=== PATIENT | female | born 1990 | race Caucasian/White ===

== ENCOUNTER 2017-04-13 01:50 | Emergency (ER) | payer BC ==
[2017-04-13 02:10] VITALS: BP 142/74
--- NOTE | 2017-04-13 02:14 | EDM.PDOC ---
ED HPI GENERAL MEDICAL PROBLEM - General Chief Complaint: Respiratory Problem Stated Complaint: cough sob Time Seen by Provider: 04/13/17 02:14 Source of Information: Reports: Patient History Limitations: Reports: No Limitations - History of Present Illness INITIAL COMMENTS - FREE TEXT/NARRATIVE: 26-year-old female reports that she has felt unwell for the better part of a week. Both her father and a brother have been influenza positive. She was tested last Thursday which would've been 07 April and she proved to be negative at that time. She has had all the signs symptoms of influenza however with the body aches headache and paroxysmal cough. Appetite has been very poor. She feels however her chest is becoming much more tender from coughing and now starting to become more productive in terms of sputum production. Intermittent fever and chills. Unable to sleep tonight as soon as she lies down she starts coughing severely. Pain quite bad along her lower ribs lateral rib cage bilaterally from coughing Onset: Gradual Onset Date: 04/05/17 Duration: Day(s): Location: Reports: Chest (Productive cough) Quality: Reports: Ache, Sharp, Stabbing, Other Severity: Moderate (Hurts to cough particularly lower lateral ribs bilaterally.) Improves with: Reports: None Worsens with: Reports: Other Context: Reports: Sick Contact (Father and brother are positive for influenza.) . Denies: Activity (Movement and exposure to cool night air.), Exercise, Lifting Associated Symptoms: Reports: Chest Pain, Cough, cough w sputum (From coughing so much), Fever/Chills, Headaches, Loss of Appetite, Malaise, Shortness of Breath. 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.) chest (respiratory) Pain Score (Numeric/FACES): 9 - Related Data Allergies Allergy/AdvReac Type Severity Reaction Status Date / Time No Known Allergies Allergy Verified 04/13/17 02:10 Home Meds: Home Meds Citalopram [Celexa] 40 mg PO DAILY 09/20/14 [History] Levothyroxine [Synthroid] 200 mcg PO DAILY 09/20/14 [History] Omeprazole [Prilosec] 40 mg PO DAILY 09/20/14 [History] Norethindrone AC-Eth Estradiol [Scooby 1.5 mg-30 Mcg Tablet] 1 each PO DAILY [History] Ondansetron [Zofran ODT] 4 mg PO Q6H PRN #20 tab.dis 03/28/16 [Rx] buPROPion [buPROPion XL] 150 mg PO DAILY 03/28/16 [History] Albuterol [Ventolin HFA] 1 - 2 puff INH Q4H PRN 04/13/17 [History] Chlorpheniramine/HYDROcodone [Tussionex Pennkinetic] 5 ml PO Q12H PRN #60 ml [Rx] Doxycycline [Vibramycin] 100 mg PO DAILY #20 tab 04/13/17 [Rx] LORazepam 0.5 - 1 mg PO Q8H PRN 04/13/17 [History] Past Medical History Gastrointestinal History: Reports: Chronic Diarrhea, Irritable Bowel Syndrome Psychiatric History: Reports: Anxiety, Depression Endocrine/Metabolic History: Reports: Hypothyroidism - Past Surgical History HEENT Surgical History: Reports: Eye Surgery Social & Family History - Family History Family Medical History: Noncontributory - Tobacco Use Smoking Status *Q: Never Smoker - Caffeine Use Caffeine Use: Reports: None - Recreational Drug Use Recreational Drug Use: No - Living Situation & Occupation Living situation: Reports: Single Occupation: Employed ED ROS GENERAL - Review of Systems Review Of Systems: See Below Constitutional: Reports: Fever, Malaise, Weakness, Fatigue, Decreased Appetite HEENT: Reports: Ear Pain (Right side), Eye Pain (Irritation of right medial eye. ), Glasses Respiratory: Reports: Shortness of Breath, Cough, Sputum (Productive cough). Denies: Hemoptysis ( discolored sputum) Cardiovascular: Reports: Chest Pain (From coughing so much left lateral lower ribs are very tender to to cough.), Dyspnea on Exertion. Denies: Blood Pressure Problem, Claudication, Edema, Lightheadedness, Orthopnea, Palpitations Endocrine: Reports: Fatigue GI/Abdominal: Reports: Decreased Appetite : Reports: No Symptoms Musculoskeletal: Reports: No Symptoms Skin: Reports: No Symptoms Neurological: Reports: No Symptoms Psychiatric: Reports: No Symptoms ED EXAM, GENERAL - Physical Exam Exam: See Below Exam Limited By: No Limitations General Appearance: Alert, WD/WN, No Apparent Distress, Other (Very productive sounding cough.) Eye Exam: Bilateral Eye: Conjunctival Injection (Right medial conjunctiva is quite erythematous. Patient has had previous tubes placed in her tear duct apparatus. She states she does become inflamed periodically.) Ear Exam: Right Ear: TM Dull, TM Bulging (Has evidence of a right serous otitis media. Left TM is normal.) Throat/Mouth: Normal Inspection, Normal Lips, Normal Teeth, Normal Oropharynx, Other Head: Atraumatic, Normocephalic (Tonsils are normal) Neck: Normal Inspection, Supple, Non-Tender, Full Range of Motion, Lymphadenopathy (L) (Moderately enlarged and tender to touch.), Lymphadenopathy (R) (Mildly enlarged.) Respiratory/Chest: Respiratory Distress (Mild tachypnea at rest 22-24/m), Rhonchi, Wheezing (Scattered rhonchi upper lobes and left posterior upper lobe. Scattered wheezes and similar lobes.) Cardiovascular: Normal Peripheral Pulses, Regular Rate, Rhythm, No Edema, No Murmur, Tachycardia (Resting heart rate of 10 2/m.) GI/Abdominal: Normal Bowel Sounds, Soft, Non-Tender, No Organomegaly Back Exam: Normal Inspection, Full Range of Motion. No: CVA Tenderness (L), CVA Tenderness (R) Extremities: Normal Inspection, Normal Range of Motion, Non-Tender, No Pedal Edema Neurological: Alert, Oriented, CN II-XII Intact, Normal Cognition, Normal Gait Psychiatric: Normal Affect, Normal Mood Skin Exam: Warm, Dry, Intact, Normal Color, No Rash Course - Vital Signs Last Recorded V/S: Last Vital Signs Temp 36.6 C 04/13/17 02:07 Pulse 100 04/13/17 02:07 Resp 22 H 04/13/17 02:07 BP 142/74 H 04/13/17 02:07 Pulse Ox 98 04/13/17 02:07 - Orders/Labs/Meds Orders: Active Orders 24 hr Category Date Time Status Chest 2V [CR] Stat Exams 04/13/17 02:24 Ordered INFLUENZA A+B AG SCREEN [RM] Stat Lab 04/13/17 02:24 Uncollected - Radiology Interpretation Free Text/Narrative:: 26-year-old female attends the ED with a weeklong history of paroxysmal cough occasionally 0 point of emesis. Both her father and brother were proved positive for influenza. She was screened last April 07 and was proved to be negative at that time. She did have all the signs and symptoms of influenza with headache bodyache and paroxysmal cough. She came to the ED tonight because when she lies down she can't stop coughing. Unable to sleep. Also started bringing up more sputum greenish in color. Still having intermittent fever and chills. Examination shows a right serous otitis media. Chest is mildly congested with scattered expiratory wheezes and rhonchi. Plan influenza skin screen repeated. Two-view chest to be done. - Re-Assessments/Exams Free Text/Narrative Re-Assessment/Exam: 04/13/17 02:55 chest x-ray reveals an infiltrate right lower lobe adjacent to the heart border. This is compatible with ADD developing pneumonia. Will therefore be Phenergan with Codeine cough syrup in the ED 15 mils now the first 2 tablets of doxycycline 100 mg will be given as well. Treatment as an outpatient be Doxil cycle 100 mg twice a day for the next 10 days Tussionex cough syrup 5 mils every 12 hours. For cough relief 60 mils written for. Follow- up with personal physician if not markedly improved in 72 hours time Departure - Departure Time of Disposition: 02:55 Disposition: Home, Self-Care 01 Condition: Fair Clinical Impression: Pneumonia Qualifiers: Pneumonia type: due to unspecified organism Laterality: right Lung location: lower lobe of lung Qualified Code(s): J18.1 - Lobar pneumonia, unspecified organism - Discharge Information Prescriptions: Chlorpheniramine/HYDROcodone [Tussionex Pennkinetic] 5 ml PO Q12H PRN #60 ml PRN Reason: COUGH RELIEF Doxycycline [Vibramycin] 100 mg PO DAILY #20 tab Referrals: Shannan Fox, SURVEILLANCE MONITOR [Primary Care Provider] - Forms: ED Department Discharge Additional Instructions: Evaluation the emergency room tonight in regards to paroxysmal productive cough getting worse over the last week. Ribs are hurting from coughing so much. Intermittent fever and chills. Exam reveals fluid behind her right ear with no acute infection yet. X-ray two-view reveals pneumonia starting in the bottom of your right lung adjacent to your heart. Treatment is therefore to be antibiotics doxycycline 100 mg twice daily for the next 10 days to clear up infection. Cough syrup will be Tussionex cough syrup 5 mils every 12 hours as needed for cough relief. Continue Motrin 600 mg every 6 hours needed for fever or body ache or headache relief. Expect gradual improvement over the next 72 hours In the ED were given Phenergan with codeine cough syrup as we do not have Tussionex in the department. First 2 tablets of doxycycline were also provided by mouth. - My Orders Last 24 Hours: My Active Orders 04/13/17 02:24 Chest 2V [CR] Stat INFLUENZA A+B AG SCREEN [RM] Stat - Assessment/Plan Last 24 Hours: My Active Orders 04/13/17 02:24 Chest 2V [CR] Stat INFLUENZA A+B AG SCREEN [RM] Stat
[2017-04-13] MEDS ORDERED: Codeine/Promethazine 10-6.25 MG/5 ML Syrup 5 ML UD Cup PO ONE (02:51)
[2017-04-13] MEDS ORDERED: Doxycycline 100 MG Cap PO ONE (02:51)
--- NOTE | 2017-04-13 07:54 | CR ---
Chest: Two views of the chest were obtained. Comparison: No prior chest x-ray is available. Heart size and mediastinum are within normal limits. Lungs are clear. Bony structures are unremarkable for the patient's age. Surgical clips are noted from prior cholecystectomy. Impression: 1. Nothing acute is identified on two-view chest x-ray. Diagnostic code #2
== END 2017-04-13 03:10 | disposition home or self-care (01) ==
LOC: JD.ED 01:50
DX: J18.9 Pneumonia, unspecified organism (principal); E03.9 Hypothyroidism, unspecified; Z79.899 Other long term (current) drug therapy
CPT/HCPCS: 71046; 87804; 99283; A9270; 99284

== ENCOUNTER 2019-05-02 15:38 | Emergency (ER) | payer BC ==
--- NOTE | 2019-05-02 16:36 | EDM.PDOC ---
<Jeannette Lowry - Last Filed: 05/02/19 16:25> ED HPI GENERAL MEDICAL PROBLEM - General Chief Complaint: ENT Problem Stated Complaint: COLD/CHEST PAIN Time Seen by Provider: 05/02/19 16:10 Source of Information: Reports: Patient History Limitations: Reports: No Limitations - History of Present Illness INITIAL COMMENTS - FREE TEXT/NARRATIVE: Patient is a pleasant 28-year-old female who presents to the ED for ongoing congestion, sore throat, and bilateral ear pain that has been present for the past month and chest pain that started a three days ago. She reports she was seen at the clinic about a month ago for congestion, sore throat, and ear pain, at which time she was told it was viral in nature and prescribed an albuterol inhaler and told to take OTC cold medicine. She states her symptoms never resolved and now the ear pain has increased. She states the clinic did tell her she had a bilateral ear effusion, however she has not tried any of the OTC treatments they suggested. She feels the sore throat is from the nasal drainage. Three days ago she developed intermittent chest pain that she reports last about 10 minutes in duration and occurs about twice every hour. She describes the pain as sharp and rates it between a 5-8/10 depending on the time. She states she has tried Tylenol for the pain with no relief. She denies previous episodes of chest pain. She does not think the chest pain is brought on by coughing or movement. The pain comes on suddenly and resolves on its own after about 10 minutes. She denies shortness of breath, fever, chills, nausea, vomiting, and diarrhea. Upper Chest Pain Score (Numeric/FACES): 6 - Related Data Allergies Allergy/AdvReac Type Severity Reaction Status Date / Time No Known Allergies Allergy Verified 05/02/19 15:45 Home Meds: Home Meds Levothyroxine [Synthroid] 150 mcg PO [id number] 09/20/14 [History] Omeprazole [Prilosec] 40 mg PO DAILY 09/20/14 [History] Norethindrone AC-Eth Estradiol [Scooby 1.5 mg-30 Mcg Tablet] 1 each PO DAILY [History] Ondansetron [Zofran ODT] 4 mg PO Q6H PRN #20 tab.dis 03/28/16 [Rx] buPROPion [buPROPion XL] 300 mg PO DAILY 03/28/16 [History] Albuterol [Ventolin HFA] 1 - 2 puff INH Q4H PRN 04/13/17 [History] LORazepam 0.5 - 1 mg PO Q8H PRN 04/13/17 [History] Codeine/Promethazine [Phenergan with Codeine] 5 - 10 ml PO Q6HR PRN #300 ml [Rx] Levothyroxine Sodium [Synthroid] 175 mcg PO VARELA 05/02/19 [History] predniSONE [Prednisone] 40 mg PO DAILY #10 tablet 05/02/19 [Rx] Past Medical History HEENT History: Reports: Impaired Vision Gastrointestinal History: Reports: Chronic Diarrhea, Irritable Bowel Syndrome Psychiatric History: Reports: Anxiety, Depression Endocrine/Metabolic History: Reports: Hypothyroidism Oncologic (Cancer) History: Reports: Thyroid - Past Surgical History HEENT Surgical History: Reports: Eye Surgery Social & Family History - Family History Family Medical History: Noncontributory - Tobacco Use Smoking Status *Q: Never Smoker - Caffeine Use Caffeine Use: Reports: Soda - Recreational Drug Use Recreational Drug Use: No - Living Situation & Occupation Living situation: Reports: Single Occupation: Employed ED ROS ENT - Review of Systems Review Of Systems: See Below Constitutional: Reports: Fatigue. Denies: Fever, Chills HEENT: Reports: Ear Pain (bilateral), Rhinitis, Sinus Problem (congestion), Throat Pain. Denies: Eye Pain, Vertigo, Vision Change Respiratory: Reports: Cough (occasional dry). Denies: Shortness of Breath, Wheezing Cardiovascular: Reports: No Symptoms. Denies: Chest Pain, Edema, Lightheadedness, Syncope GI/Abdominal: Reports: No Symptoms. Denies: Abdominal Pain, Diarrhea, Nausea, Vomiting Musculoskeletal: Reports: No Symptoms. Denies: Neck Pain, Back Pain, Muscle Pain Skin: Reports: No Symptoms. Denies: Rash, Erythema Neurological: Reports: No Symptoms. Denies: Dizziness, Headache, Numbness, Syncope, Tingling, Weakness Psychiatric: Reports: No Symptoms ED EXAM, ENT - Physical Exam Exam: See Below Exam Limited By: No Limitations General Appearance: Alert, WD/WN, No Apparent Distress Eye Exam: Bilateral Eye: Normal Inspection, PERRL Ears: Normal External Exam, Normal Canal, Hearing Grossly Normal, TM Fluid ( bilateral ear effusions). No: TM Bulging, TM Dullness, TM Erythema Nose: Normal Inspection, Normal Mucousa, No Blood, Clear Rhinorrhea Mouth/Throat: Normal Inspection, Normal Gums, Normal Lips, Normal Teeth, Other ( postnasal drainage noted in posterior oropharynx. Oral mucosa dry.) Head: Atraumatic, Normocephalic Neck: Normal Inspection, Supple, Non-Tender, Full Range of Motion Respiratory/Chest: No Respiratory Distress, Lungs Clear, No Accessory Muscle Use , Chest Non-Tender, Decreased Breath Sounds (all lung ferguson sound tight). No: Rales, Rhonchi, Wheezing Cardiovascular: Normal Peripheral Pulses, Regular Rate, Rhythm, No Edema, No Gallop, No Murmur GI/Abdominal: Normal Bowel Sounds, Soft, Non-Tender, No Organomegaly, No Distention, No Mass. No: No Abnormal Bruit Back: Normal Inspection, Full Range of Motion Extremities: Normal Inspection, Normal Range of Motion, Non-Tender, No Pedal Edema, Normal Capillary Refill Neurological: Alert, Oriented, Normal Cognition, Normal Gait, No Motor/Sensory Deficits Psychiatric: Normal Affect, Normal Mood Skin: Warm, Dry, Intact, Normal Color, No Rash Lymphatic: No Adenopathy Course - Vital Signs Last Recorded V/S: Last Vital Signs Temp 98.4 F 05/02/19 15:49 Pulse 99 05/02/19 15:49 Resp 14 05/02/19 15:49 BP 138/90 05/02/19 15:49 Pulse Ox 100 05/02/19 16:38 - Orders/Labs/Meds Orders: Active Orders 24 hr Category Date Time Status RT Aerosol Therapy [RC] ASDIRECTED Care 05/02/19 16:38 Active CXR [Chest 2V] [CR] Stat Exams 05/02/19 16:38 Taken Meds: Medications Discontinued Medications Generic Name Dose Route Start Last Admin Trade Name Freq PRN Reason Stop Dose Admin Albuterol/Ipratropium 3 ml 05/02/19 16:38 05/02/19 16:48 Duoneb 3.0-0.5 Mg/3 Ml NEB 05/02/19 16:39 3 ml ONETIME ONE Administration Departure - Departure Disposition: Home, Self-Care 01 Clinical Impression: Viral URI Reactive airway disease Qualifiers: Asthma severity: mild Asthma persistence: intermittent Asthma complication type : with acute exacerbation Qualified Code(s): J45.21 - Mild intermittent asthma with (acute) exacerbation - Discharge Information Prescriptions: Codeine/Promethazine [Phenergan with Codeine] 5 - 10 ml PO Q6HR PRN #300 ml PRN Reason: Cough predniSONE [Prednisone] 40 mg PO DAILY #10 tablet Referrals: PCP,None [Primary Care Provider] - Forms: ED Department Discharge Additional Instructions: Take the prednisone 40mg daily for 5 days. Use the inhaler 2 puffs every 6 hours as needed for shortness of breath and cough. Take the phenergan with codeine 10mls every 6 hours as needed for cough. Please return if ou are worse. Sepsis Event Note - Evaluation Sepsis Screening Result: No Definite Risk - Focused Exam Vital Signs: Vital Signs Temp Pulse Resp BP Pulse Ox Pulse Ox 05/02/19 16:38 100 05/02/19 15:49 98.4 F 99 14 138/90 100 Date Exam was Performed: 05/02/19 Time Exam was Performed: 16:25 - My Orders Last 24 Hours: My Active Orders 05/02/19 16:38 RT Aerosol Therapy [RC] ASDIRECTED CXR [Chest 2V] [CR] Stat - Assessment/Plan Last 24 Hours: My Active Orders 05/02/19 16:38 RT Aerosol Therapy [RC] ASDIRECTED CXR [Chest 2V] [CR] Stat <Polo Esteban - Last Filed: 05/02/19 17:12> Course - Re-Assessments/Exams Free Text/Narrative Re-Assessment/Exam: 05/02/19 17:05 I examined the patient myself and I agree with Jeannette's assessment and plan. I ordered a duoneb and a CXR. The CXR looks good. She sounds better. She says she does not feel better. I feel she has reactive airways from a viral URI. I will get her on some steroids and have her use the inhaler. I will also give her something for a cough. Departure - Departure Time of Disposition: 17:10 Condition: Good - Discharge Information *PRESCRIPTION DRUG MONITORING PROGRAM REVIEWED*: No *COPY OF PRESCRIPTION DRUG MONITORING REPORT IN PATIENT ESEQUIEL: No Sepsis Event Note - Focused Exam Date Exam was Performed: 05/02/19 Time Exam was Performed: 17:05
[2019-05-02] MEDS ORDERED: Albuterol/Ipratropium 3.0-0.5 MG/3 ML Neb Soln NEB ONE (16:38)
--- NOTE | 2019-05-02 17:12 | CR ---
Chest: 2 views of the chest were obtained. Comparison: Prior chest x-ray of 04/13/17. Heart size and mediastinum are normal. Lungs are clear. Bony structures appear within normal limits for the patient's age. Impression: 1. Nothing acute is appreciated on 2 view chest x-ray. Diagnostic code #1 Study was dictated in [place] Standard Time
[2019-05-02 17:27] VITALS: BP 128/87; PULSE 89
== END 2019-05-02 17:20 | disposition home or self-care (01) ==
LOC: JD.ED 15:38
DX: J45.21 Mild intermittent asthma with (acute) exacerbation (principal); J06.9 Acute upper respiratory infection, unspecified; E03.9 Hypothyroidism, unspecified; F41.9 Anxiety disorder, unspecified; F32.9 Major depressive disorder, single episode, unspecified; Z79.899 Other long term (current) drug therapy
CPT/HCPCS: 71046; 71046-26; 94640; 99283; 99283-25; J7620-GY

== ENCOUNTER 2019-05-06 05:45 | Emergency (ER) | payer BC ==
[2019-05-06 05:57] VITALS: BP 139/97; PULSE 90
--- NOTE | 2019-05-06 06:19 | EDM.PDOC ---
<Miah Canseco Maciej - Last Filed: 05/06/19 06:46> ED HPI GENERAL MEDICAL PROBLEM - General Chief Complaint: Respiratory Problem Stated Complaint: COUGH RIB PAIN SOB Time Seen by Provider: 05/06/19 05:53 Source of Information: Reports: Patient History Limitations: Reports: No Limitations - History of Present Illness INITIAL COMMENTS - FREE TEXT/NARRATIVE: Ms. Luis is a very pleasant 28-year-old woman with a past medical history significant for thyroid cancer, status post thyroidectomy, who, medical records indicate, was seen in this ED this past 05/02/2019, with a complaint at that time of nasal congestion, sore throat, and bilateral ear pain that had been present for the past month, along with chest pain that had started 3 days prior. She reported that she had been seen at the clinic a month ago for nasal congestion, sore throat, and ear pain, at which time she was told she had a viral illness, and was prescribed an albuterol inhaler and told to take efnn-ygt-daxtheh cold medicines. She reported to the ED physician on Thursday that her symptoms had never resolved, and that her ear pain had increased. She acknowledges that she did not try any of the kevz-rlq-vxqosjs remedies they suggested. With respect to the chest pain, she reported that it was intermittent, lasting about 10 minutes in duration, recurring about twice every hour. She describes the pain as sharp in character. She states that she had tried Tylenol for the pain without relief. On examination, she was found to have bilateral ear effusions, but no tympanic membrane bulging or erythema. She was noted to have postnasal drip in the posterior oropharynx. Her lungs sounded tight. Work-up included a chest x-ray, which was unremarkable. She was diagnosed with a viral URI, and discharged home with a prescription for prednisone 40 mg daily x 10 days and promethazine with codeine cough syrup, 300 mL. Instructed to take these, along with 2 puffs of the previously prescribed albuterol every 6 hours as needed for shortness of breath and cough. The patient now returns to the ED stating that she has had retrosternal chest pain since , 04/28/2019. She describes the pain as a pressure sensation. She states that it comes and goes, typically lasting a few minutes, recurring every few hours. She states that it occurs if she takes a deep breath or coughs. She reports having a slight, nonproductive cough. She also reports left rib pain of the same character and frequency as her retrosternal pain. No recent fever, although she has felt alternatingly cold and sweaty. She has had a sore throat for the past week. No recent nausea, vomiting, constipation, diarrhea, or urinary symptoms. The patient states that she has not taken any bxcu-hyf-qrxfxtm or home remedies , but that she has been taking the prednisone, cough syrup, and albuterol as prescribed, but that none of these have helped, at all. The patient states that she had similar symptoms a few years ago, and was diagnosed with pneumonia. The patient does not have a PCP. Her System Trainer is Dr. Martina Godoy. She did not receive an influenza vaccine this season, but agreed to receive one here today. Left Lower Sternum Pain Score (Numeric/FACES): 6 - Related Data Allergies Allergy/AdvReac Type Severity Reaction Status Date / Time No Known Allergies Allergy Verified 05/06/19 06:06 Home Meds: Home Meds Levothyroxine [Synthroid] 150 mcg PO MOTUWETHFRSA 09/20/14 [History] Omeprazole [Prilosec] 40 mg PO DAILY 09/20/14 [History] Norethindrone AC-Eth Estradiol [Scooby 1.5 mg-30 Mcg Tablet] 1 each PO DAILY [History] Ondansetron [Zofran ODT] 4 mg PO Q6H PRN #20 tab.dis 03/28/16 [Rx] buPROPion [buPROPion XL] 300 mg PO DAILY 03/28/16 [History] Albuterol [Ventolin HFA] 1 - 2 puff INH Q4H PRN 04/13/17 [History] LORazepam 0.5 - 1 mg PO Q8H PRN 04/13/17 [History] Codeine/Promethazine [Phenergan with Codeine] 5 - 10 ml PO Q6HR PRN #300 ml [Rx] Levothyroxine Sodium [Synthroid] 175 mcg PO VARELA 05/02/19 [History] Past Medical History HEENT History: Reports: Impaired Vision (wears glasses) Gastrointestinal History: Reports: Irritable Bowel Syndrome Psychiatric History: Reports: Anxiety, Depression Endocrine/Metabolic History: Reports: Hypothyroidism, Obesity/BMI 30+ Oncologic (Cancer) History: Reports: Thyroid (s/p thyroidectomy) - Past Surgical History HEENT Surgical History: Reports: Eye Surgery (right strabismus repair + bilateral eye tubes x 2) GI Surgical History: Reports: Cholecystectomy (2013) Other Musculoskeletal Surgeries/Procedures:: rib pain to left side Social & Family History - Family History Family Medical History: Noncontributory - Tobacco Use Smoking Status *Q: Never Smoker - Caffeine Use Caffeine Use: Reports: None - Alcohol Use Alcohol Use History: No - Recreational Drug Use Recreational Drug Use: No - Living Situation & Occupation Living situation: Reports: Single, with Family Occupation: Employed ([employer]) ED ROS GENERAL - Review of Systems Review Of Systems: Comprehensive ROS is negative, except as noted in HPI. GI/Abdominal: Reports: Diarrhea (chronic) ED EXAM, GENERAL - Physical Exam Exam: See Below Exam Limited By: No Limitations General Appearance: Alert, WD/WN, No Apparent Distress Eye Exam: Bilateral Eye: EOMI, Normal Inspection Ears: Normal External Exam, Normal Canal, Hearing Grossly Normal, Normal TMs Nose: Normal Inspection, Normal Mucosa, No Blood Throat/Mouth: Normal Inspection, Normal Lips, Normal Teeth, Normal Gums, Normal Oropharynx, Normal Voice, No Airway Compromise Head: Atraumatic, Normocephalic Neck: Normal Inspection, Supple, Non-Tender, Full Range of Motion. No: Lymphadenopathy (L), Lymphadenopathy (R) Respiratory/Chest: No Respiratory Distress, Lungs Clear, Normal Breath Sounds, No Accessory Muscle Use. No: Decreased Breath Sounds, Crackles, Rhonchi, Wheezing, Stridor, Prolonged Expiration Cardiovascular: Normal Peripheral Pulses, Regular Rate, Rhythm, No Edema, No Gallop, No JVD, No Murmur, No Rub Peripheral Pulses: 4+: Radial (L), Radial (R) GI/Abdominal: Normal Bowel Sounds, Soft, Non-Tender, No Organomegaly, No Distention, No Abnormal Bruit, No Mass (Female) Exam: Deferred Rectal (Female) Exam: Deferred Back Exam: Normal Inspection, Full Range of Motion, NT Extremities: Normal Inspection, Normal Range of Motion, No Pedal Edema, Normal Capillary Refill Neurological: Alert, Oriented, Normal Cognition, No Motor/Sensory Deficits Psychiatric: Normal Affect Skin Exam: Warm, Dry, Intact, Normal Color, No Rash EKG INTERPRETATION EKG Date: 05/06/19 Time: 06:20 Rhythm: NSR Rate (Beats/Min): 85 [place]: Normal P-Wave: Present QRS: Normal ST-T: Normal QT: Normal Comparison: NA - No Prior EKG Course - Vital Signs Last Recorded V/S: Last Vital Signs Temp 37.4 C 05/06/19 05:52 Pulse 90 05/06/19 05:52 Resp 18 05/06/19 05:52 BP 139/97 H 05/06/19 05:52 Pulse Ox 100 05/06/19 05:52 - Orders/Labs/Meds Orders: Active Orders 24 hr Category Date Time Status EKG Documentation Completion [RC] STAT Care 05/06/19 06:10 Active Influenza Vaccine Charge [RC] .DISCHARGE Care 05/06/19 06:26 Active CULTURE STREP A CONFIRMATION [] Stat Lab 05/06/19 06:20 Results STREP SCRN A RAPID W CULT CONF [] Stat Lab 05/06/19 06:20 Results Labs: Laboratory Tests 05/06/19 05/06/19 05/06/19 Range/Units 06:23 06:23 06:23 WBC 20.48 H (3.98-10.04) K/mm3 RBC 4.34 (3.98-5.22) M/mm3 Hgb 12.2 (11.2-15.7) gm/dl Hct 37.8 (34.1-44.9) % MCV 87.1 D (79.4-94.8) fl MCH 28.1 (25.6-32.2) pg MCHC 32.3 (32.2-35.5) g/dl RDW Std Deviation 43.5 (36.4-46.3) fL Plt Count 443 H (182-369) K/mm3 MPV 9.5 (9.4-12.3) fl Neutrophils % (Manual) 82 H (40-60) % Band Neutrophils % 0 (0-10) % Lymphocytes % (Manual) 14 L (20-40) % Atypical Lymphs % 0 % Monocytes % (Manual) 4 (2-10) % Eosinophils % (Manual) 0 L (0.7-5.8) % Basophils % (Manual) 0 L (0.1-1.2) Platelet Estimate Adequate Plt Morphology Comment Normal Polychromasia 1+ slight Stomatocytes Few RBC Morph Comment Not Reportable D-Dimer, Quantitative 0.30 (0.19-0.50) mg/L Sodium 140 (136-145) mEq/L Potassium 3.8 (3.5-5.1) mEq/L Chloride 105 (98-107) mEq/L Carbon Dioxide 25 (21-32) mEq/L Anion Gap 13.8 (5-15) BUN 17 (7-18) mg/dL Creatinine 1.0 (0.55-1.02) mg/dL Est Cr Clr Drug Dosing 74.69 mL/min Estimated GFR (MDRD) > 60 (>60) mL/min BUN/Creatinine Ratio 17.0 (14-18) Glucose 93 (74-106) mg/dL Calcium 8.2 L (8.5-10.1) mg/dL Total Bilirubin 0.2 (0.2-1.0) mg/dL AST 13 L (15-37) U/L ALT 40 (14-59) U/L Alkaline Phosphatase 66 (46-116) U/L Troponin I < 0.017 (0.00-0.056) ng/mL C-Reactive Protein 0.7 (<1.0) mg/dL Total Protein 7.1 (6.4-8.2) g/dl Albumin 3.0 L (3.4-5.0) g/dl Globulin 4.1 gm/dL Albumin/Globulin Ratio 0.7 L (1-2) Meds: Medications Discontinued Medications Generic Name Dose Route Start Last Admin Trade Name Freq PRN Reason Stop Dose Admin Influenza Virus Vaccine 60 mcg 05/06/19 06:45 05/06/19 07:05 Fluzone Quad [id number] Syringe IM 05/06/19 06:46 60 mcg .ONCE ONE Administration - Re-Assessments/Exams Free Text/Narrative Re-Assessment/Exam: 05/06/19 06:12 The pleuritic nature of the patient's chest pain, paired with a negative chest x -ray from Thursday strongly indicates a musculoskeletal etiology. My suspicion for a PE or cardiac etiology is very low, nevertheless, I offered to check some blood work, and ECG, and a repeat chest x-ray, hopefully to put this issue to rest. 05/06/19 06:46 Two-view chest radiograph appears to be grossly normal. Cardiac silhouette is within normal limits. No pulmonary vascular congestion. No pleural effusions. No focal infiltrate. No pneumothorax. Formal read per the Radiologist pending. 05/06/19 07:[address] Giron, and care of the patient turned over to him at this time, for change of shift. Departure - Departure Disposition: Home, Self-Care 01 Clinical Impression: Bronchitis, Viral illness - Discharge Information Referrals: PCP,None [Primary Care Provider] - Forms: ED Department Discharge Additional Instructions: Return to the emergency room with any questions problems or worsening symptoms. Call the hospital clinic for a recheck appointment next week. [phone] be sure and tell them you are seen in the emergency room. Use your albuterol inhaler 2 puffs every 4 hours while awake. Continue taking the prednisone until you run out. Increase your omeprazole to twice daily 30 to 60 minutes before your morning or evening meals. Sepsis Event Note - Evaluation Sepsis Screening Result: No Definite Risk - Focused Exam Vital Signs: Vital Signs Temp Pulse Resp BP Pulse Ox 05/06/19 05:52 37.4 C 90 18 139/97 H 100 Date Exam was Performed: 05/06/19 Time Exam was Performed: 06:46 <Chepe Giron - Last Filed: 05/06/19 08:37> Course - Re-Assessments/Exams Free Text/Narrative Re-Assessment/Exam: 05/06/19 08:33 Laboratory evaluation is entirely within normal limits except her CBC shows an elevated white count without a bandemia. This is probably due to her prednisone. Patient does state that her cough is improving over time. Her cough is dry for the most part she did cough up a little bit of blood this morning. The patient is using her albuterol every 4-6 hours which is appropriate she is taking the prednisone as directed. At this point I do not believe antibiotics are indicated her last chest x-ray was normal and the chest x-ray done today is normal. She has a little bit of burning in her substernal area this could be aggravated by the prednisone that she has been taking we will have her increase her omeprazole to twice daily and see if this helps with this. Her troponin was negative EKG reportedly shows no acute changes I was unable to actually review the tracing as it is in medical records Departure - Departure Time of Disposition: 08:35 Sepsis Event Note - Focused Exam Date Exam was Performed: 05/06/19 Time Exam was Performed: 08:33
[2019-05-06] MEDS ORDERED: FLU Vacc QS2019-20(6MOS+)/PF 60 MCG/0.5 ML SYRINGE IM ONE (06:45)
--- NOTE | 2019-05-06 08:14 | CR ---
Chest: Two views of the chest were obtained. Comparison: Prior chest x-ray of 05/02/19. Heart size and mediastinum are within normal limits. Lungs are clear with no acute parenchymal change. Bony structures are unremarkable. Surgical clips are seen within the upper abdomen. Impression: 1. Nothing acute is appreciated on two-view chest x-ray. Diagnostic code #1 This report was dictated in [place] Standard Time
== END 2019-05-06 08:40 | disposition home or self-care (01) ==
LOC: JD.ED 05:45
DX: J40 Bronchitis, not specified as acute or chronic (principal); B34.9 Viral infection, unspecified; Z79.899 Other long term (current) drug therapy
CPT/HCPCS: 36415; 71046; 71046-26; 80053; 84484; 85007; 85027; 85379; 86140; 87081; 87430; 90686; 93005; 93010; 99283; 99284-25; G0008

== ENCOUNTER 2020-10-25 10:40 | Emergency (ER) | payer BC ==
[2020-10-25] MEDS ORDERED: Sodium Chloride 0.9% 10 ML Syringe FLUSH PRN (11:24)
[2020-10-25] MEDS ORDERED: Ketorolac 30 MG/ML SDV IVPUSH ONE (11:25)
[2020-10-25] MEDS ORDERED: cefTRIAXone 2 GM in Sodium Chloride 0.9% 100 ML IV ONE (11:26)
--- NOTE | 2020-10-25 11:31 | EDM.PDOC ---
ED HPI GENERAL MEDICAL PROBLEM - General Chief Complaint: Headache Stated Complaint: HEADACHE AND ELEVATED WBC SENT BY [place] Time Seen by Provider: 10/25/20 11:12 Source of Information: Reports: Patient, RN Notes Reviewed History Limitations: Reports: No Limitations - History of Present Illness INITIAL COMMENTS - FREE TEXT/NARRATIVE: Patient is a 30-year-old female who presents to the ER for a headache and elevated white blood cell count. Patient was evaluated by her primary care provider, Fide Garcia yesterday in clinic and was called with results that her white blood cell count was elevated at 17.3. Patient notes that for the last 3 weeks she has been suffering from sinus issues, she has had a dull headache, dizziness, and intense sinus pressure for that amount of time. She was scheduled to have a CT of her sinuses done, but her provider directed her to come to the ER for more immediate management as she might need IV antibiotics. Patient states that she has been on amoxicillin twice daily for the last 10 days, some prednisone as well. She was recently started on a Z-Luis F and is on day 2 of the Z-Luis F. She is not having any fevers, chills, cough or shortness of breath. Notes that she did have tear duct surgery in July, and states that the sutures are still retained from what she knows. She is not been around anyone has been sick. She is not having any throat pain. She does have some ear pressure/pain. Patient denies any chance of at this time. Headache Pain Score (Numeric/FACES): 8 - Related Data Allergies Allergy/AdvReac Type Severity Reaction Status Date / Time No Known Allergies Allergy Verified 10/25/20 11:14 Home Meds: Home Meds Levothyroxine [Synthroid] 150 mcg PO MOTUWETHFRSA 09/20/14 [History] Omeprazole [Prilosec] 40 mg PO DAILY 09/20/14 [History] Ondansetron [Zofran ODT] 4 mg PO Q6H PRN #20 tab.dis 03/28/16 [Rx] buPROPion [buPROPion XL] 300 mg PO DAILY 03/28/16 [History] norethindrone ac-eth estradioL [Scooby 1.5 mg-30 Mcg Tablet] 1 each PO DAILY 03/28/16 [History] Albuterol [Ventolin HFA] 1 - 2 puff INH Q4H PRN 04/13/17 [History] LORazepam 0.5 - 1 mg PO Q8H PRN 04/13/17 [History] Codeine/Promethazine [Phenergan with Codeine] 5 - 10 ml PO Q6HR PRN #300 ml 05/02/19 [Rx] Levothyroxine Sodium [Synthroid] 175 mcg PO VARELA 05/02/19 [History] Past Medical History HEENT History: Reports: Impaired Vision Gastrointestinal History: Reports: Irritable Bowel Syndrome Psychiatric History: Reports: Anxiety, Depression Endocrine/Metabolic History: Reports: Hypothyroidism, Obesity/BMI 30+ Oncologic (Cancer) History: Reports: Thyroid - Past Surgical History HEENT Surgical History: Reports: Eye Surgery (tear duct tubes) GI Surgical History: Reports: Cholecystectomy Endocrine Surgical History: Reports: Thyroidectomy Other Musculoskeletal Surgeries/Procedures:: rib pain to left side Social & Family History - Family History Family Medical History: No Pertinent Family History - Tobacco Use Tobacco Use Status *Q: Never Tobacco User - Caffeine Use Caffeine Use: Reports: None - Recreational Drug Use Recreational Drug Use: No - Living Situation & Occupation Living situation: Reports: Single, with Family Occupation: Employed ([employer]) ED ROS GENERAL - Review of Systems Review Of Systems: Comprehensive ROS is negative, except as noted in HPI. - Physical Exam Exam: See Below Exam Limited By: No Limitations General Appearance: Alert, WD/WN, No Apparent Distress Eye Exam: Bilateral Eye: EOMI, Normal Inspection, PERRL Ears: Normal External Exam, Normal Canal, Hearing Grossly Normal, Normal TMs Nose: Normal Inspection, Other (bilateral injected turbinates) Throat/Mouth: Normal Inspection, Normal Lips, Normal Teeth, Normal Gums, Normal Oropharynx, Normal Voice, No Airway Compromise Head Exam: Atraumatic, Normocephalic Neck: Normal Inspection, Supple, Non-Tender, Full Range of Motion Respiratory/Chest: No Respiratory Distress, Lungs Clear, Normal Breath Sounds, No Accessory Muscle Use, Chest Non-Tender Cardiovascular: Normal Peripheral Pulses, Regular Rate, Rhythm, No Edema GI/Abdominal: Normal Bowel Sounds, Soft, Non-Tender, No Distention, No Mass Neuro Exam (Abbreviated): Alert, Oriented, Normal Cognition, No Motor/Sensory Deficits Extremities: Normal Inspection, Normal Capillary Refill Psychiatric: Normal Affect, Normal Mood Skin Exam: Warm, Dry, Intact, Normal Color, No Rash Course - Vital Signs Last Recorded V/S: Last Vital Signs Temp 98.5 F 10/25/20 11:11 Pulse 93 10/25/20 11:11 Resp 16 10/25/20 11:11 BP 143/100 H 10/25/20 11:11 Pulse Ox 96 10/25/20 11:11 - Orders/Labs/Meds Orders: Active Orders 24 hr Category Date Time Status Peripheral IV Care [RC] . DIRECTED Care 10/25/20 11:25 Ordered CBC WITH AUTO DIFF [HEME] Stat Lab 10/25/20 11:24 Ordered Sodium Chloride 0.9% [Saline Flush] Med 10/25/20 11:24 Active 10 ml FLUSH ASDIRECTED PRN Peripheral IV Insertion Adult [OM.PC] Routine Oth 10/25/20 11:23 Ordered Medication Orders Sodium Chloride (Sodium Chloride 0.9% 10 Ml Syringe) 10 ml FLUSH ASDIRECTED PRN PRN Reason: Keep Vein Open Last Admin: 10/25/20 11:48 Dose: 10 ml Documented by: WOO Labs: Laboratory Tests 10/25/20 Range/Units 11:48 WBC 13.93 H (3.98-10.04) K/mm3 RBC 4.38 (3.98-5.22) M/mm3 Hgb 12.3 (11.2-15.7) gm/dl Hct 36.8 (34.1-44.9) % MCV 84.0 D (79.4-94.8) fl MCH 28.1 (25.6-32.2) pg MCHC 33.4 (32.2-35.5) g/dl RDW Std Deviation 41.1 (36.4-46.3) fL Plt Count 393 H (182-369) K/mm3 MPV 9.6 (9.4-12.3) fl Neut % (Auto) 65.9 (34.0-71.1) % Lymph % (Auto) 25.6 (19.3-51.7) % [place] % (Auto) 7.0 (4.7-12.5) % Eos % (Auto) 0.9 (0.7-5.8) Baso % (Auto) 0.1 (0.1-1.2) % Neut # (Auto) 9.18 H (1.56-6.13) K/mm3 Lymph # (Auto) 3.57 (1.18-3.74) K/mm3 [place] # (Auto) 0.97 H (0.24-0.36) K/mm3 Eos # (Auto) 0.12 (0.04-0.36) K/mm3 Baso # (Auto) 0.02 (0.01-0.08) K/mm3 Meds: Medications Generic Name Dose Route Start Last Admin Trade Name Freq PRN Reason Stop Dose Admin Sodium Chloride 10 ml 10/25/20 11:24 10/25/20 11:48 Sodium Chloride 0.9% 10 Ml Syringe FLUSH 10 ml ASDIRECTED PRN Administration Keep Vein Open Discontinued Medications Generic Name Dose Route Start Last Admin Trade Name Freq PRN Reason Stop Dose Admin Ceftriaxone Sodium 2 gm/ 100 mls @ 200 mls/hr 10/25/20 11:26 10/25/20 11:49 Sodium Chloride IV 10/25/20 11:55 200 mls/hr ONETIME ONE Administration Ketorolac Tromethamine 30 mg 10/25/20 11:25 10/25/20 11:48 Ketorolac 30 Mg/Ml Sdv IVPUSH 10/25/20 11:26 30 mg ONETIME ONE Administration - Re-Assessments/Exams Free Text/Narrative Re-Assessment/Exam: 10/25/20 11:30 Patient presents to the ER for the evaluation of her sinus pressure/headache. We will go ahead and get a maxillofacial CT for evaluation, we will give her 2 g Rocephin IV as she is already been on multiple different antibiotics, and repeat a CBC. She will get IV Toradol for pain management at this time. 10/25/20 12:10 CT has been performed, lacrimal duct stents are present, there is a small retention cyst noted within the right maxillary sinus which measures roughly 1.6 cm, other portions of the paranasal sinuses and mastoid sinuses are clear at this time. It does appear as if this might be more of an allergic sinusitis type picture with CT results, if she is not already doing so, I will suggest that she use Flonase, Zyrtec on a daily basis, and try some nasal rinses as well to try to relieve some of the pressure. 08/12/21 12:36 CBC demonstrates a white count of 13.93, with no left shift on the auto differential. I did go over these findings with the patient, she verbalized understanding at this time. Departure - Departure Time of Disposition: 12:36 Disposition: Home, Self-Care 01 Condition: Good Clinical Impression: Sinusitis Headache Qualifiers: Headache type: other headache syndrome Qualified Code(s): G44.89 - Other headache syndrome - Discharge Information *PRESCRIPTION DRUG MONITORING PROGRAM REVIEWED*: No *COPY OF PRESCRIPTION DRUG MONITORING REPORT IN PATIENT ESEQUIEL: No Instructions: Sinusitis, Adult, [id number], Sinus Headache, [id number] Referrals: Fide Garcia, [employer]ENT[employer] SALES AGENT [Primary Care Provider] - Forms: ED Department Discharge Additional Instructions: You were evaluated in the ER today for your headache, and ongoing sinus issues. A maxillofacial CT was done at today's visit, and demonstrates the lacrimal duct stents were in place, and there is no sign of acute bacterial sinusitis that would be the cause of your pain at today's visit. Your white cell count was 13.93 at today's visit, with no discernible left shift which would indicate a worsening bacterial infection. You were given 2 g Rocephin IV, for ongoing management however I would suggest that you cease use of any further oral antibiotics, as there is no definite source of a bacterial infection that would indicate continued antibiotic use at this time. You should start using a medication like Nasacort or Flonase, as an intranasal steroid to help strengthen the nasal sinuses, and to manage eustachian tube dysfunction. Please do a slow sniff into the nasal passages, if you can taste the medicine, you are doing this too swiftly. You may also use nasal sinus rinses, to help provide further pressure relief. Recommend you take 500 mg Tylenol or 600 mg ibuprofen every 6 hours for ongoing pain management. Do not exceed 4000 mg Tylenol or 3200 g ibuprofen in a 24-hour time span. Please follow-up with your regular care provider for ongoing management of your chronic sinus issues. Do not hesitate to return to the ER if your symptoms seem to change or worsen. Sepsis Event Note (ED) - Evaluation Sepsis Screening Result: Possible Sepsis Risk - Focused Exam Vital Signs: Vital Signs Temp Pulse Resp BP Pulse Ox 10/25/20 11:11 98.5 F 93 16 143/100 H 96 - My Orders Last 24 Hours: My Active Orders 10/25/20 11:23 Peripheral IV Insertion Adult [OM.PC] Routine 10/25/20 11:24 CBC WITH AUTO DIFF [HEME] Stat Sodium Chloride 0.9% [Saline Flush] 10 ml FLUSH ASDIRECTED PRN 10/25/20 11:25 Peripheral IV Care [RC] . DIRECTED - Assessment/Plan Last 24 Hours: My Active Orders 10/25/20 11:23 Peripheral IV Insertion Adult [OM.PC] Routine 10/25/20 11:24 CBC WITH AUTO DIFF [HEME] Stat Sodium Chloride 0.9% [Saline Flush] 10 ml FLUSH ASDIRECTED PRN 10/25/20 11:25 Peripheral IV Care [RC] . DIRECTED
--- NOTE | 2020-10-25 11:59 | CT ---
CT paranasal sinuses Technique: Multiple axial sections through the paranasal sinuses were obtained. Reconstructed coronal and sagittal images were also obtained. Intravenous contrast was not utilized. Findings: Lacrimal duct stents are present. Right and left globes are symmetric. Extraocular muscles and optic nerves are symmetric. Small retention cyst is noted within the right maxillary sinus which measures 1.6 cm. Other portions of the paranasal sinuses are clear. Mastoid sinuses are also clear. No surrounding soft tissue abnormality is appreciated. No acute osseous abnormality is seen. Impression: 1. Small retention cyst within the inferior right maxillary sinus. 2. Lacrimal duct stents are present. 3. No additional abnormality is appreciated on CT study of the paranasal sinuses. Diagnostic code #2
[2020-10-25 12:59] VITALS: BP 122/70; PULSE 67
== END 2020-10-25 12:58 | disposition home or self-care (01) ==
LOC: JD.ED 10:40
DX: J32.9 Chronic sinusitis, unspecified (principal); E03.9 Hypothyroidism, unspecified; E66.9 Obesity, unspecified; Z68.38 Body mass index [BMI] 38.0-38.9, adult; Z79.899 Other long term (current) drug therapy
CPT/HCPCS: 36415; 70486; 85025; 96365; 96375; 99284; J0696; J1885

== ENCOUNTER 2021-09-23 08:07 | Emergency (ER) | payer BC ==
[2021-09-23 08:17] VITALS: BP 149/88; PULSE 111
[2021-09-23] MEDS ORDERED: Ondansetron 4 MG/2 ML SDV IVPUSH ONE (08:41)
[2021-09-23] MEDS ORDERED: HYDROmorphone 0.5 MG/0.5 ML Syringe IVPUSH ONE (08:42)
[2021-09-23] MEDS ORDERED: Dextrose 5%-Lactated Ringers 1,000 ML IV SCH ×2 (08:45→12:00)
[2021-09-23] MEDS ORDERED: Acetaminophen 325 MG Tab PO ONE (10:22)
[2021-09-23] MEDS ORDERED: Metoclopramide 10 MG/2 ML SDV IVPUSH ONE (11:55)
[2021-09-23] MEDS ORDERED: Levofloxacin/Dextrose 5%-Water 750 MG in Premix Bag 1 BAG IV ONE (11:57)
== END 2021-09-23 16:50 | disposition home or self-care (01) ==
LOC: JD.ED 08:07
DX: A04.9 Bacterial intestinal infection, unspecified (principal); A06.0 Acute amebic dysentery; E03.9 Hypothyroidism, unspecified; E66.9 Obesity, unspecified; Z68.25 Body mass index [BMI] 25.0-25.9, adult; Z79.899 Other long term (current) drug therapy; Z90.49 Acquired absence of other specified parts of digestive tract
CPT/HCPCS: 36415; 80053; 83630; 83690; 85025; 86140; 87045; 87046; 87899; 96361; 96365; 96375; 99284; A9270; J1170; J1956; J2405; J2765; J7121

== ENCOUNTER 2021-12-17 09:39 | Emergency (ER) | payer BC ==
[2021-12-19 11:46] VITALS: BP 137/92; PULSE 91
[2022-01-15 15:14] LABS: ESTIMATED GFR 62 mL/min (>60)
[2022-01-15 15:17] LABS: CORONAVIRUS COVID-19 NAA NEGATIVE (NEGATIVE)
== END 2021-12-17 13:36 | disposition home or self-care (01) ==
LOC: JD.ED 09:39
DX: D72.829 Elevated white blood cell count, unspecified (principal); Z20.822 Contact with and (suspected) exposure to COVID-19
CPT/HCPCS: 0240U; 36415; 80053; 81001; 81025; 83605; 83735; 85025; 86140; 87040; 99284

== ENCOUNTER 2022-08-13 09:58 | Day surgery (SDC) | payer BC ==
[~2022-08-13 09:58] MED LIST: Lactated Ringers 1,000 ML IV SCH; Lidocaine 1%/Sod Bicarbonate in NS 8.4% 1 ML Syringe IDERM PRN; Sodium Chloride 0.9% 10 ML Syringe FLUSH SCH
[2022-08-13] MEDS ORDERED: Propofol 200 MG/20 ML SDV ONE (10:37)
[2022-08-13] MEDS ORDERED: fentaNYL 100 MCG/2 ML SDV ONE (10:37)
[2022-08-13] MEDS ORDERED: Lidocaine 1% 4 ML ONE (10:37)
[2022-08-13 12:09] VITALS: BP 133/79; PULSE 76
== END 2022-08-13 12:15 | disposition home or self-care (01) ==
LOC: JD.SDS 09:58
PROVIDERS: ATTEND Surgery
DX: K29.50 Unspecified chronic gastritis without bleeding (principal); E55.9 Vitamin D deficiency, unspecified; E03.9 Hypothyroidism, unspecified; F41.8 Other specified anxiety disorders; G47.33 Obstructive sleep apnea (adult) (pediatric); K21.9 Gastro-esophageal reflux disease without esophagitis; E66.9 Obesity, unspecified; Z98.890 Other specified postprocedural states; Z90.49 Acquired absence of other specified parts of digestive tract; Z79.899 Other long term (current) drug therapy; Z91.018 Allergy to other foods; Z79.890 Hormone replacement therapy; Z68.41 Body mass index [BMI] 40.0-44.9, adult
CPT/HCPCS: 43239; J2704; J3010; J7120; J3490

== ENCOUNTER 2022-08-14 08:10 | Emergency (ER) | payer BC ==
[2022-08-14 08:42] LABS: BASOPHILS ABSOLUTE AUTO 0.02 K/mm3 (0.01-0.08); BASOPHILS PERCENT AUTO 0.2 % (0.1-1.2); EOSINOPHILS ABSOLUTE AUTO 0.08 K/mm3 (0.04-0.36); EOSINOPHILS PERCENT AUTO 0.9 (0.7-5.8); HEMOGLOBIN 12.2 gm/dl (11.2-15.7); IMMATURE GRAN ABSOLUTE AUTO 0.02 K/mm3 (0.00-0.10); IMMATURE GRAN PERCENT AUTO 0.2 % (<=1.0); LYMPHOCYTES ABSOLUTE AUTO 2.44 K/mm3 (1.18-3.74); LYMPHOCYTES PERCENT AUTO 26.3 % (19.3-51.7); MEAN CORPUSCULAR HEMOGLOBIN 27.5 pg (25.6-32.2); MEAN CORPUSCULAR VOLUME 83.5 fl (79.4-94.8); MEAN PLATELET VOLUME 9.2 fl (9.4-12.3); MONOCYTES ABSOLUTE AUTO 0.57 K/mm3 (0.24-0.36); MONOCYTES PERCENT AUTO 6.1 % (4.7-12.5); NEUTROPHILS ABSOLUTE AUTO 6.14 K/mm3 (1.56-6.13); NEUTROPHILS PERCENT AUTO 66.3 % (34.0-71.1); PLATELET COUNT,PLT 461 K/mm3 (182-369); RED BLOOD CELL COUNT 4.43 M/mm3 (3.98-5.22); WHITE BLOOD CELL COUNT,WBC 9.27 K/mm3 (3.98-10.04)
[2022-08-14 09:09] LABS: A/G RATIO 0.7 (1-2); ANION GAP 12.7 (5-15); BILIRUBIN TOTAL 0.2 mg/dL (0.2-1.0); BUN/CREATININE RATIO 9.2 (14-18); CALCIUM 8.6 mg/dL (8.5-10.1); CREATININE 1.2 mg/dL (0.55-1.02); EST CRCL DRUG DOSING (CG) 69.69 mL/min; POTASSIUM,K 4.7 mEq/L (3.5-5.1); PROTEIN TOTAL,TP 7.5 g/dl (6.4-8.2)
[2022-08-14] MEDS ORDERED: Iopamidol 612 MG/ML 100 ML Bottle IVPUSH ONE (12:34)
[2022-08-14] MEDS ORDERED: Diatrizoate Meglumine/Diatrizoate Sodium 37% 120 ML Bottle PO ONE (12:34)
[2022-08-14] MEDS ORDERED: Alum Hydrox/Mag Hydrox/Simeth 30 ML, Lidocaine 2% 15 ML PO ONE ×2 (13:54)
[2022-08-14] MEDS ORDERED: Warfarin 4 MG Tab PO ONE (14:00)
[2022-08-14 15:19] VITALS: BP 116/58; PULSE 81
== END 2022-08-14 15:09 | disposition home or self-care (01) ==
LOC: JD.ED 08:10
DX: R07.89 Other chest pain (principal); K21.9 Gastro-esophageal reflux disease without esophagitis; E03.9 Hypothyroidism, unspecified; E66.9 Obesity, unspecified; Z68.41 Body mass index [BMI] 40.0-44.9, adult; Z91.018 Allergy to other foods; Z79.899 Other long term (current) drug therapy; Z98.890 Other specified postprocedural states
CPT/HCPCS: 36415; 71260; 80053; 84484; 84703; 85025; 93005; 99285; A9270; Q9963; Q9967; 99284